=== PATIENT | female | born 1945 | race Two or more races ===

== ENCOUNTER 2022-08-12 03:50 | Inpatient (IN) | payer OTHER ==
[~2022-08-12] VITALS: Ht 162.6 cm; Wt 64.0 kg
[2022-08-12] MEDS ORDERED: ACETAMINOPHEN ES 500 MG TABLET ONE (04:07)
[2022-08-12] MEDS ORDERED: ACETAMINOPHEN ES 500 MG TABLET PO ONE (04:30)
[2022-08-12] MEDS ORDERED: HYDROCODONE/APAP 5/325MG TABLET PO ONE (06:30)
[2022-08-12] MEDS ORDERED: HYDROCODONE/APAP 5/325MG TABLET ONE (06:31)
[2022-08-12 06:38] LABS: BASOPHILS # (AUTO) 0.1 K/uL (0.0-0.2); BASOPHILS % (AUTO) 0.8 % (0.0-2.0); EOSINOPHILS % (AUTO) 0.1 % (0.0-6.0); HEMATOCRIT 40 % (33-45); LYMPHOCYTES # (AUTO) 1.8 K/uL (0.8-4.8); LYMPHOCYTES % (AUTO) 19.4 % (20.0-44.0); MEAN CORPUSCULAR HGB CONC 33 g/dl (31.0-36.0); MEAN CORPUSCULAR VOLUME 94 fL (82-100); MONOCYTES # (AUTO) 0.7 K/uL (0.1-1.30); MONOCYTES % (AUTO) 7.9 % (2.0-12.0); NEUTROPHILS # (AUTO) 6.8 K/uL (1.8-8.9); NEUTROPHILS % (AUTO) 71.8 % (43.0-81.0); PLATELET COUNT (AUTO) 376 K/uL (150-450); RED BLOOD CELL COUNT(AUTO) 4.24 MIL/uL (4.0-5.2); WHITE BLOOD COUNT (AUTO) 9.4 K/uL (4.3-11.0)
[2022-08-12] MEDS ORDERED: CT SWABBABLE VALVE TRANS SET 1 EA INFUS.SET MC ONE (06:38)
[2022-08-12] MEDS ORDERED: IOHEXOL-300 100 ML VIAL IV ONE (06:38)
[2022-08-12] MEDS ORDERED: IV NS 0.9% 250 ML IV ONE (06:38)
[2022-08-12 06:49] LABS: CALCIUM, SERUM 9.3 mg/dL (8.5-10.1); CARBON DIOXIDE 25 mmol/L (21-32); CHLORIDE 109 mmol/L (98-107); CREATININE 0.8 mg/dL (0.6-1.3); GLUCOSE 124 mg/dL (74-106); POTASSIUM 3.8 mmol/L (3.5-5.1); SODIUM SERUM 145 mmol/L (136-145); UREA NITROGEN, BLOOD 13 mg/dL (7-18)
[2022-08-12 06:54] LABS: ALANINE AMINOTRANSFERASE 46 U/L (12-78); ALBUMIN 3.5 g/dL (3.4-5.0); ALKALINE PHOSPHATASE 107 U/L (46-116); ASPARTATE AMINOTRANSFERASE 42 U/L (15-37); BILIRUBIN,DIRECT 0.2 mg/dL (0.0-0.2); BILIRUBIN,TOTAL 0.8 mg/dL (0.2-1.0); TOTAL PROTEIN, SERUM 7.2 g/dL (6.4-8.2)
[2022-08-12] MEDS ORDERED: DILTIAZEM HCL 50 MG IV IV ONE ×2 (08:00→09:00)
[2022-08-12] MEDS ORDERED: DILTIAZEM HCL 50 MG IV ONE (08:14)
[2022-08-12 12:00] VITALS: BP 140/87
[2022-08-12] MEDS ORDERED: MAG HYDROX/AL HYDROX/SIMETH 30 ML UDC PO PRN (12:30)
[2022-08-12] MEDS ORDERED: ACETAMINOPHEN 325 MG TABLET PO PRN (12:30)
[2022-08-12] MEDS ORDERED: APIXABAN 5 MG TABLET PO SCH (12:30)
[2022-08-12] MEDS ORDERED: MAGNESIUM HYDROXIDE 30 ML UDC PO PRN (12:30)
[2022-08-12] MEDS ORDERED: ENOXAPARIN SODIUM 40 MG/0.4 ML DISP.SYRIN SQ SCH (12:30)
[2022-08-12] MEDS ORDERED: ONDANSETRON HCL/PF 4 MG/2 ML VIAL IVP PRN (12:30)
[2022-08-12] MEDS ORDERED: ASPIRIN EC 81 MG TABLET.DR PO SCH (12:30)
[2022-08-12] MEDS ORDERED: Z GUARD REMEDY 4 OZ OINT TP PRN (12:30)
[2022-08-12] MEDS: POTASSIUM CHLORIDE 20 MEQ TAB.PRT.SR PO SCH ×3 (12:46→18:41)
[2022-08-12] MEDS: FUROSEMIDE 40 MG/4 ML VIAL IV SCH ×3 (12:46→18:42)
[2022-08-12] MEDS: DIGOXIN INJ 0.5 MG/2 ML AMPUL IV SCH ×2 (13:25→18:42)
[2022-08-12] MEDS ORDERED: IPRATROPIUM NEB FS 0.5 MG/2.5 ML AMPUL.NEB NEB PRN (14:00)
[2022-08-12 16:00] VITALS: BP 138/78
[2022-08-12] MEDS: HYDROCODONE/APAP 5/325MG TABLET PO PRN (16:20)
[2022-08-12 20:00] VITALS: BP 120/61
[2022-08-13] VITALS: BP 100/67
[2022-08-13] MEDS: DIGOXIN INJ 0.5 MG/2 ML AMPUL IV SCH (01:43)
[2022-08-13] MEDS: HYDROCODONE/APAP 5/325MG TABLET PO PRN (01:58)
[2022-08-13 04:41] VITALS: BP 103/66
[2022-08-13 06:11] LABS: BASOPHILS # (AUTO) 0.1 K/uL (0.0-0.2); EOSINOPHILS % (AUTO) 0.4 % (0.0-6.0); HEMATOCRIT 34 % (33-45); HEMOGLOBIN 11.4 g/dL (11.5-14.8); LYMPHOCYTES # (AUTO) 2.8 K/uL (0.8-4.8); LYMPHOCYTES % (AUTO) 36.8 % (20.0-44.0); MEAN CORPUSCULAR HGB CONC 33 g/dl (31.0-36.0); MEAN CORPUSCULAR VOLUME 92 fL (82-100); MONOCYTES # (AUTO) 0.6 K/uL (0.1-1.30); MONOCYTES % (AUTO) 8.6 % (2.0-12.0); NEUTROPHILS % (AUTO) 53.2 % (43.0-81.0); PLATELET COUNT (AUTO) 286 K/uL (150-450); RED BLOOD CELL COUNT(AUTO) 3.73 MIL/uL (4.0-5.2); WHITE BLOOD COUNT (AUTO) 7.5 K/uL (4.3-11.0)
[2022-08-13 06:40] LABS: ALANINE AMINOTRANSFERASE 29 U/L (12-78); ALBUMIN 2.6 g/dL (3.4-5.0); ALKALINE PHOSPHATASE 81 U/L (46-116); ASPARTATE AMINOTRANSFERASE 25 U/L (15-37); BILIRUBIN,TOTAL 0.6 mg/dL (0.2-1.0); CALCIUM, SERUM 8.4 mg/dL (8.5-10.1); CARBON DIOXIDE 32 mmol/L (21-32); CHLORIDE 108 mmol/L (98-107); CREATININE 0.7 mg/dL (0.6-1.3); GLUCOSE 93 mg/dL (74-106); MAGNESIUM 1.9 mg/dL (1.8-2.4); POTASSIUM 3.8 mmol/L (3.5-5.1); SODIUM SERUM 144 mmol/L (136-145); TOTAL PROTEIN, SERUM 5.6 g/dL (6.4-8.2); UREA NITROGEN, BLOOD 17 mg/dL (7-18)
[2022-08-13 06:41] LABS: CHOLESTEROL 173 mg/dL (<200); HDL CHOLESTEROL 65 mg/dL (40-60); LDL 100 mg/dL (0-99); THYROID STIMULATING HORMONE 4.664 uIU/mL (0.358-3.74); TRIGLYCERIDES 72 mg/dL (30-150)
[2022-08-13] MEDS: PANTOPRAZOLE 40 MG TABLET.DR PO SCH (07:30)
[2022-08-13 08:00] VITALS: BP 102/50
[2022-08-13] MEDS: FUROSEMIDE 40 MG/4 ML VIAL IV SCH ×3 (10:18→16:51)
[2022-08-13] MEDS: POTASSIUM CHLORIDE 20 MEQ TAB.PRT.SR PO SCH ×3 (10:22→13:41)
[2022-08-13] MEDS ORDERED: PREG-58 PO (13:14)
[2022-08-13] MEDS ORDERED: METO100T14 PO (13:14)
[2022-08-13] MEDS ORDERED: FURO40TA5 PO (13:14)
[2022-08-13] MEDS ORDERED: APIX5TAB PO (13:14)
[2022-08-13] MEDS ORDERED: LEVO100T9 PO (13:14)
[2022-08-13] MEDS ORDERED: TRAZ150T75 PO (13:16)
[2022-08-13 16:00] VITALS: BP 105/55
[2022-08-13 20:00] VITALS: BP 101/57
[2022-08-14] VITALS: BP 106/57
[2022-08-14 04:00] VITALS: BP 114/59
[2022-08-14 06:12] LABS: BASOPHILS # (AUTO) 0.1 K/uL (0.0-0.2); BASOPHILS % (AUTO) 0.8 % (0.0-2.0); EOSINOPHILS % (AUTO) 0.8 % (0.0-6.0); HEMATOCRIT 39 % (33-45); HEMOGLOBIN 12.8 g/dL (11.5-14.8); LYMPHOCYTES # (AUTO) 2.3 K/uL (0.8-4.8); LYMPHOCYTES % (AUTO) 32.6 % (20.0-44.0); MEAN CORPUSCULAR HGB CONC 33 g/dl (31.0-36.0); MEAN CORPUSCULAR VOLUME 93 fL (82-100); MONOCYTES # (AUTO) 0.7 K/uL (0.1-1.30); MONOCYTES % (AUTO) 9.2 % (2.0-12.0); NEUTROPHILS # (AUTO) 4.1 K/uL (1.8-8.9); NEUTROPHILS % (AUTO) 56.6 % (43.0-81.0); PLATELET COUNT (AUTO) 307 K/uL (150-450); RED BLOOD CELL COUNT(AUTO) 4.24 MIL/uL (4.0-5.2); WHITE BLOOD COUNT (AUTO) 7.2 K/uL (4.3-11.0)
[2022-08-14 06:37] LABS: ALANINE AMINOTRANSFERASE 27 U/L (12-78); ALBUMIN 2.8 g/dL (3.4-5.0); ALKALINE PHOSPHATASE 90 U/L (46-116); ASPARTATE AMINOTRANSFERASE 27 U/L (15-37); BILIRUBIN,TOTAL 0.8 mg/dL (0.2-1.0); CALCIUM, SERUM 8.9 mg/dL (8.5-10.1); CARBON DIOXIDE 33 mmol/L (21-32); CHLORIDE 105 mmol/L (98-107); CREATININE 0.7 mg/dL (0.6-1.3); GLUCOSE 92 mg/dL (74-106); PHOSPHORUS 2.9 mg/dL (2.5-4.9); POTASSIUM 3.7 mmol/L (3.5-5.1); SODIUM SERUM 142 mmol/L (136-145); UREA NITROGEN, BLOOD 18 mg/dL (7-18)
[2022-08-14 08:00] VITALS: BP 115/69
[2022-08-14] MEDS: PANTOPRAZOLE 40 MG TABLET.DR PO SCH (08:09)
[2022-08-14] MEDS: APIXABAN 5 MG TABLET PO SCH ×2 (08:10→16:30)
[2022-08-14 09:10] LABS: IRON, SERUM 33 ug/dl (50-175); TOTAL IRON BINDING CAPACITY 251 ug/dl (250-450)
[2022-08-14] MEDS: CARVEDILOL 3.125 MG TABLET PO SCH ×2 (09:18→21:00)
[2022-08-14] MEDS: SPIRONOLACTONE 25 MG TABLET PO SCH (09:18)
[2022-08-14 09:22] LABS: FERRITIN 144 ng/mL (8-388)
[2022-08-14 12:00] VITALS: BP 97/61
[2022-08-14] MEDS ORDERED: CARV3.122 PO (14:50)
[2022-08-14] MEDS ORDERED: SPIR25TA6 PO (14:50)
[2022-08-14 16:00] VITALS: BP 115/78
[2022-08-14] MEDS: HYDROCODONE/APAP 5/325MG TABLET PO PRN (19:36)
[2022-08-14 22:51] VITALS: BP 104/62
[2022-08-15 00:52] VITALS: BP 107/60
[2022-08-15 05:43] VITALS: BP 104/47
[2022-08-15 07:20] LABS: BASOPHILS # (AUTO) 0.1 K/uL (0.0-0.2); EOSINOPHILS % (AUTO) 1.3 % (0.0-6.0); HEMATOCRIT 39 % (33-45); HEMOGLOBIN 12.8 g/dL (11.5-14.8); LYMPHOCYTES # (AUTO) 2.7 K/uL (0.8-4.8); LYMPHOCYTES % (AUTO) 40.3 % (20.0-44.0); MEAN CORPUSCULAR HGB CONC 33 g/dl (31.0-36.0); MEAN CORPUSCULAR VOLUME 92 fL (82-100); MONOCYTES # (AUTO) 0.7 K/uL (0.1-1.30); MONOCYTES % (AUTO) 10.3 % (2.0-12.0); NEUTROPHILS # (AUTO) 3.2 K/uL (1.8-8.9); NEUTROPHILS % (AUTO) 47.1 % (43.0-81.0); PLATELET COUNT (AUTO) 317 K/uL (150-450); RED BLOOD CELL COUNT(AUTO) 4.24 MIL/uL (4.0-5.2); WHITE BLOOD COUNT (AUTO) 6.7 K/uL (4.3-11.0)
[2022-08-15 08:00] VITALS: BP 120/72
[2022-08-15] MEDS: PANTOPRAZOLE 40 MG TABLET.DR PO SCH (08:19)
[2022-08-15] MEDS: SPIRONOLACTONE 25 MG TABLET PO SCH (08:19)
[2022-08-15] MEDS: CARVEDILOL 3.125 MG TABLET PO SCH (08:21)
[2022-08-15] MEDS: APIXABAN 5 MG TABLET PO SCH (08:23)
[2022-08-15 08:37] LABS: CALCIUM, SERUM 8.7 mg/dL (8.5-10.1); CREATININE 0.7 mg/dL (0.6-1.3); MAGNESIUM 2.2 mg/dL (1.8-2.4); PHOSPHORUS 3.6 mg/dL (2.5-4.9); POTASSIUM 3.5 mmol/L (3.5-5.1)
[2022-08-15 12:00] VITALS: BP 101/74
[2022-08-15] MEDS ORDERED: SACU1TAB7 PO (12:01)
== END 2022-08-15 16:00 | DRG 280 ==
LOC: ER 03:52 → TELE1 10:53
PROVIDERS: ATTEND Nurse Practitioner Acute Care
PROC: 0W993ZX Drainage of Right Pleural Cavity, Percutaneous Approach, Diagnostic (ICD-10-PCS; principal; 2022-08-13)
DX: I11.0 Hypertensive heart disease with heart failure (principal); I50.43 Acute on chronic combined systolic (congestive) and diastolic (congestive) heart failure; I21.A1 Myocardial infarction type 2; D68.59 Other primary thrombophilia; J90 Pleural effusion, not elsewhere classified; E44.0 Moderate protein-calorie malnutrition; K80.60 Calculus of gallbladder and bile duct with cholecystitis, unspecified, without obstruction; J98.11 Atelectasis; W18.30XA Fall on same level, unspecified, initial encounter; Y92.9 Unspecified place or not applicable; Z20.822 Contact with and (suspected) exposure to COVID-19; Z91.041 Radiographic dye allergy status; Z79.01 Long term (current) use of anticoagulants; Z79.899 Other long term (current) drug therapy; I48.91 Unspecified atrial fibrillation; K57.30 Diverticulosis of large intestine without perforation or abscess without bleeding; Z86.73 Personal history of transient ischemic attack (TIA), and cerebral infarction without residual deficits; J45.909 Unspecified asthma, uncomplicated; E88.09 Other disorders of plasma-protein metabolism, not elsewhere classified; E78.5 Hyperlipidemia, unspecified; K82.8 Other specified diseases of gallbladder; M47.812 Spondylosis without myelopathy or radiculopathy, cervical region; Z91.81 History of falling
CPT/HCPCS: 36415; 70450-TC; 71045-TC; 71250-TC; 72125-TC; 72170-TC; 76700-TC; 78226; 80048-TC; 80053-TC; 80061-TC; 80076-TC; 82728-TC; 83540-TC; 83735-TC; 83880; 84100-TC; 84443-TC; 84484-TC; 85025-TC; 85730-TC; 86850-TC; 87081-TC; 87102-TC; 89051-TC; 93307-TC; 97116-TC; 97530-TC; A9537; C9803; G0378; J1160; J1940; J3490; J7050; Q9967